=== PATIENT | male | born 1970 | race Caucasian/White ===

== ENCOUNTER 2019-06-16 18:03 | Inpatient (IN) | payer BC ==
[~2019-06-16] VITALS: Ht 198.1 cm; Wt 64.9 kg
[2019-06-16] MEDS ORDERED: Hydrocodone-Ap1 EA20 PO (19:34)
[2019-06-16] MEDS ORDERED: CYCL10 PO (19:35)
[2019-06-16] MEDS ORDERED: ZESTORETIC 20-251 EA PO (19:35)
[2019-06-16] MEDS ORDERED: TOPROL XL50 MG PO (19:35)
[2019-06-16] MEDS ORDERED: Mobic15 MG PO (19:36)
[2019-06-16] MEDS ORDERED: NIFE60ER PO (19:36)
[2019-06-16] MEDS ORDERED: CIPR500 PO (20:46)
[2019-06-17 00:15] LABS: Adenovirus Not Detected (NOT DETECT); Coronavirus 229E Not Detected (NOT DETECT); Coronavirus HKU1 Not Detected (NOT DETECT)
[2019-06-17 00:16] LABS: Bordetella pertussis Not Detected (NOT DETECT); Chlamydophila pneumoniae Not Detected (NOT DETECT); Coronavirus NL63 Not Detected (NOT DETECT); Coronavirus OC43 Not Detected (NOT DETECT); Human Metapneumovirus Not Detected (NOT DETECT); Human Rhinovirus/Enterovirus Detected (NOT DETECT); Influenza A Not Detected (NOT DETECT); Influenza A/2009-H1 Not Detected (NOT DETECT); Influenza A/H1 Not Detected (NOT DETECT); Influenza A/H3 Not Detected (NOT DETECT); Influenza B Not Detected (NOT DETECT); Mycoplasma pneumoniae Not Detected (NOT DETECT); Parainfluenza Virus 1 Not Detected (NOT DETECT); Parainfluenza Virus 2 Not Detected (NOT DETECT); Parainfluenza Virus 3 Not Detected (NOT DETECT); Parainfluenza Virus 4 Not Detected (NOT DETECT); Respiratory Syncytial Virus Not Detected (NOT DETECT)
[2019-06-17 05:10] LABS: Hematocrit 35.8 % (37.0-53.0); Hemoglobin 11.8 g/dL (13.5-17.5); Mean Corpuscular HGB 32.2 pg (26.0-34.0); Mean Corpuscular Volume 98 fL (80-100); Mean Platelet Volume 10.1 fL (9.1-12.4); Platelet Count 225 K/mm3 (150-400); RDW Coefficient Variation 13.3 % (11.7-14.2); RDW Standard Deviation 47.8 fL (35.1-46.3); Red Blood Cell Count 3.66 M/mm3 (4.30-5.90); White Blood Cell Count 17.88 K/mm3 (4.00-11.30)
[2019-06-17 05:33] LABS: Alanine Aminotransfer (ALT/SGP 14 U/L (12-78); Albumin, Blood 2.8 g/dL (3.4-5.0); Albumin/Globulin Ratio 0.8 (0.8-1.8); Alk Phos 62 U/L (50-136); Anion Gap 8 mmol/L (6-16); Aspartate Aminotrans (AST/SGOT 10 U/L (12-37); Bilirubin, Total 0.9 mg/dL (0.1-1.0); Blood Urea Nitrogen 19 mg/dL (8-24); Bun/Creatinine Ratio 19.7 (12.0-20.0); CO2, Blood 26 mmol/L (21-32); Calcium, Blood 8.4 mg/dL (8.5-10.1); Chloride, Blood 103 mmol/L (98-108); Creatinine, Blood 0.96 mg/dL (0.60-1.20); Globulin, Blood 3.6 g/dL (2.2-4.0); Glomerular Filtration Rate >60 (60-); Glucose, Blood 112 mg/dL (70-99); Potassium, Blood 3.4 mmol/L (3.5-5.5); Sodium, Blood 137 mmol/L (136-145); Total Protein, Blood 6.4 g/dL (6.4-8.2)
[2019-06-17 15:29] LABS: Free Thyroxine 1.2 ng/dL (0.70-1.60)
[2019-06-17 15:31] LABS: Thyroid Stimulating Hormone 0.19 uIU/mL (0.360-4.800); Triiodothyronine, Free 0.95 pg/mL (2.18-3.98)
[2019-06-18 04:08] LABS: BASOPHILS ABSOLUTE AUTO 0.02 K/mm3 (0.00-0.23); BASOPHILS PERCENT AUTO 0 % (0-2); EOSINOPHILS PERCENT AUTO 0 % (0-6); Hematocrit 36.7 % (37.0-53.0); Hemoglobin 11.9 g/dL (13.5-17.5); IMMATURE GRAN ABSOLUTE AUTO 0.08 K/mm3 (0.00-0.10); IMMATURE GRAN PERCENT AUTO 1 % (0-1); LYMPHOCYTES ABSOLUTE AUTO 0.61 K/mm3 (0.84-5.20); LYMPHOCYTES PERCENT AUTO 5 % (21-46); MONOCYTES ABSOLUTE AUTO 0.26 K/mm3 (0.16-1.47); MONOCYTES PERCENT AUTO 2 % (4-13); Mean Corpuscular HGB 31.7 pg (26.0-34.0); Mean Corpuscular HGB Conc 32.4 g/dL (31.5-36.5); Mean Corpuscular Volume 98 fL (80-100); Mean Platelet Volume 10.2 fL (9.1-12.4); NEUTROPHILS ABSOLUTE AUTO 11.32 K/mm3 (1.96-9.15); NEUTROPHILS PERCENT AUTO 92 % (41-73); Platelet Count 255 K/mm3 (150-400); RDW Coefficient Variation 12.9 % (11.7-14.2); RDW Standard Deviation 45.8 fL (35.1-46.3); Red Blood Cell Count 3.75 M/mm3 (4.30-5.90); White Blood Cell Count 12.29 K/mm3 (4.00-11.30)
[2019-06-18 04:26] LABS: Alanine Aminotransfer (ALT/SGP 19 U/L (12-78); Albumin, Blood 2.6 g/dL (3.4-5.0); Albumin/Globulin Ratio 0.7 (0.8-1.8); Alk Phos 58 U/L (50-136); Anion Gap 5 mmol/L (6-16); Aspartate Aminotrans (AST/SGOT 10 U/L (12-37); Bilirubin, Total 0.4 mg/dL (0.1-1.0); Blood Urea Nitrogen 20 mg/dL (8-24); Bun/Creatinine Ratio 24.1 (12.0-20.0); CO2, Blood 27 mmol/L (21-32); Calcium, Blood 8.5 mg/dL (8.5-10.1); Chloride, Blood 109 mmol/L (98-108); Creatinine, Blood 0.83 mg/dL (0.60-1.20); Globulin, Blood 3.8 g/dL (2.2-4.0); Glomerular Filtration Rate >60 (60-); Glucose, Blood 136 mg/dL (70-99); Potassium, Blood 3.8 mmol/L (3.5-5.5); Sodium, Blood 141 mmol/L (136-145); Total Protein, Blood 6.4 g/dL (6.4-8.2)
--- NOTE | 2019-06-18 05:24 | NUR ---
Shift Summary Patient appeared to sleep well overnight. He has not been able to produce a sputum sample yet. Crackles present to left lower lung on auscultation. Cough and deep breathing encouraged. Fluid encouraged.
--- NOTE | 2019-06-18 19:12 | NUR ---
SHIFT SUMMARY- PT IS A/O, COOPERATIVE, PLESANT. PT IS INDEPENDANT. CONTINUINING ON IV ANTIBIOTICS.
[2019-06-19 04:06] LABS: BASOPHILS ABSOLUTE AUTO 0.01 K/mm3 (0.00-0.23); BASOPHILS PERCENT AUTO 0 % (0-2); EOSINOPHILS PERCENT AUTO 0 % (0-6); Hematocrit 35.5 % (37.0-53.0); Hemoglobin 11.7 g/dL (13.5-17.5); IMMATURE GRAN ABSOLUTE AUTO 0.16 K/mm3 (0.00-0.10); IMMATURE GRAN PERCENT AUTO 1 % (0-1); LYMPHOCYTES ABSOLUTE AUTO 0.68 K/mm3 (0.84-5.20); LYMPHOCYTES PERCENT AUTO 5 % (21-46); MONOCYTES ABSOLUTE AUTO 0.33 K/mm3 (0.16-1.47); MONOCYTES PERCENT AUTO 3 % (4-13); Mean Corpuscular HGB 32.7 pg (26.0-34.0); Mean Corpuscular Volume 99 fL (80-100); Mean Platelet Volume 10.2 fL (9.1-12.4); NEUTROPHILS ABSOLUTE AUTO 12.07 K/mm3 (1.96-9.15); NEUTROPHILS PERCENT AUTO 91 % (41-73); Platelet Count 299 K/mm3 (150-400); RDW Coefficient Variation 12.9 % (11.7-14.2); RDW Standard Deviation 47.1 fL (35.1-46.3); Red Blood Cell Count 3.58 M/mm3 (4.30-5.90); White Blood Cell Count 13.25 K/mm3 (4.00-11.30)
--- NOTE | 2019-06-19 07:38 | NUR ---
Shift Summary Patient slept well overnight. Coughing and deep breathing encouraged.
[2019-06-19] MEDS ORDERED: VISBIOME 112.51 EACH PO (12:19)
[2019-06-19] MEDS ORDERED: AMOX875 (12:21)
[2019-06-19] MEDS ORDERED: AMOCLA875 PO (12:23)
[2019-06-19] MEDS ORDERED: [UNRECOGNIZED DRUG - OTHER] PO (12:29)
[2019-06-19] MEDS ORDERED: HYDRO PO (12:29)
--- NOTE | 2019-06-19 14:57 | NUR ---
PT DISCHARGED FROM UNIT. PT AMBULATED. DAUGHTER WILL MEET HIM DOWNSTAIRS TO PROVIDE A RIDE HOME. DISCHARGE INSTRUCTIONS REVIEWED. IV REMOVED. FAXED MEDICATIONS TO ANGÉL[facility]. DISCUSSED FOLLOW UP APPOINTMENT NEEDED.
== END 2019-06-19 13:55 | disposition home or self-care (01) | DRG 871 ==
LOC: ER 18:03 → MEDS 19:06
PROVIDERS: Internal Medicine; ADMIT Internal Medicine
DX: A41.9 Sepsis, unspecified organism (principal); J13 Pneumonia due to Streptococcus pneumoniae; E44.0 Moderate protein-calorie malnutrition; J44.0 Chronic obstructive pulmonary disease with (acute) lower respiratory infection; R64 Cachexia; Q87.40 Marfan syndrome, unspecified; Z68.1 Body mass index [BMI] 19.9 or less, adult; E05.90 Thyrotoxicosis, unspecified without thyrotoxic crisis or storm; F17.210 Nicotine dependence, cigarettes, uncomplicated; I10 Essential (primary) hypertension; D64.9 Anemia, unspecified
CPT/HCPCS: 0099U; 36415; 71045; 71046; 80053; 83605; 84146; 84439; 84443; 84481; 85025; 85027; 87040; 94640; 94760; 96374; 99285-25; J0456; J0696; J1650; J2930; J7030; J7050

== ENCOUNTER → 2019-06-16 | Outpatient (CLI) | payer BC ==
[~2019-06-16] MED LIST: AMOCLA875 PO; AMOX875; CIPR500 PO; CYCL10 PO; HYDRO PO; Hydrocodone-Ap1 EA20 PO; Mobic15 MG PO; NIFE60ER PO; TOPROL XL50 MG PO; VISBIOME 112.51 EACH PO; ZESTORETIC 20-251 EA PO; [UNRECOGNIZED DRUG - OTHER] PO
[2019-06-16 16:22] LABS: BASOPHILS ABSOLUTE AUTO 0.05 K/mm3 (0.00-0.23); BASOPHILS PERCENT AUTO 0 % (0-2); EOSINOPHILS ABSOLUTE AUTO 0.01 K/mm3 (0.00-0.68); EOSINOPHILS PERCENT AUTO 0 % (0-6); Hematocrit 40.6 % (37.0-53.0); Hemoglobin 13.5 g/dL (13.5-17.5); IMMATURE GRAN ABSOLUTE AUTO 0.29 K/mm3 (0.00-0.10); IMMATURE GRAN PERCENT AUTO 2 % (0-1); LYMPHOCYTES ABSOLUTE AUTO 0.85 K/mm3 (0.84-5.20); LYMPHOCYTES PERCENT AUTO 4 % (21-46); MONOCYTES PERCENT AUTO 4 % (4-13); Mean Corpuscular HGB 32.5 pg (26.0-34.0); Mean Corpuscular HGB Conc 33.3 g/dL (31.5-36.5); Mean Corpuscular Volume 98 fL (80-100); Mean Platelet Volume 9.9 fL (9.1-12.4); NEUTROPHILS ABSOLUTE AUTO 17.78 K/mm3 (1.96-9.15); NEUTROPHILS PERCENT AUTO 90 % (41-73); Platelet Count 289 K/mm3 (150-400); RDW Coefficient Variation 13.2 % (11.7-14.2); Red Blood Cell Count 4.15 M/mm3 (4.30-5.90); White Blood Cell Count 19.68 K/mm3 (4.00-11.30)
[2019-06-16 16:40] LABS: Alanine Aminotransfer (ALT/SGP 20 U/L (12-78); Albumin, Blood 3.5 g/dL (3.4-5.0); Albumin/Globulin Ratio 0.9 (0.8-1.8); Alk Phos 77 U/L (50-136); Anion Gap 6 mmol/L (6-16); Aspartate Aminotrans (AST/SGOT 9 U/L (12-37); Bilirubin, Total 1.4 mg/dL (0.1-1.0); Blood Urea Nitrogen 18 mg/dL (8-24); Bun/Creatinine Ratio 18.8 (12.0-20.0); CO2, Blood 25 mmol/L (21-32); Calcium, Blood 8.8 mg/dL (8.5-10.1); Chloride, Blood 104 mmol/L (98-108); Creatinine, Blood 0.96 mg/dL (0.60-1.20); Globulin, Blood 3.8 g/dL (2.2-4.0); Glomerular Filtration Rate >60 (60-); Glucose, Blood 109 mg/dL (70-99); Potassium, Blood 3.6 mmol/L (3.5-5.5); Sodium, Blood 135 mmol/L (136-145); Total Protein, Blood 7.3 g/dL (6.4-8.2)
== END ==
LOC: LAB SHORT 16:13 → LAB 16:13
PROVIDERS: Nurse Practitioner
DX: R53.83 Other fatigue (principal)
CPT/HCPCS: 80053; 85025

== ENCOUNTER → 2019-09-21 | Outpatient (CLI) | payer BC ==
[2019-09-21 12:10] LABS: Hematocrit 39.2 % (37.0-53.0); Hemoglobin 12.6 g/dL (13.5-17.5); Mean Corpuscular HGB 31.7 pg (26.0-34.0); Mean Corpuscular HGB Conc 32.1 g/dL (31.5-36.5); Mean Corpuscular Volume 99 fL (80-100); Mean Platelet Volume 10.4 fL (9.1-12.4); Platelet Count 336 K/mm3 (150-400); RDW Coefficient Variation 12.4 % (11.7-14.2); RDW Standard Deviation 45.3 fL (35.1-46.3); Red Blood Cell Count 3.98 M/mm3 (4.30-5.90); White Blood Cell Count 5.79 K/mm3 (4.00-11.30)
[2019-09-21 12:33] LABS: C-REACTIVE PROTEIN, EXT RANGE 0.931 mg/dL (0.000-0.300)
[2019-09-21 12:40] LABS: Alanine Aminotransfer (ALT/SGP 36 U/L (12-78); Albumin, Blood 3.4 g/dL (3.4-5.0); Albumin/Globulin Ratio 0.9 (0.8-1.8); Alk Phos 87 U/L (50-136); Anion Gap 4 mmol/L (6-16); Aspartate Aminotrans (AST/SGOT 17 U/L (12-37); Bilirubin, Total 0.4 mg/dL (0.1-1.0); Blood Urea Nitrogen 18 mg/dL (8-24); Bun/Creatinine Ratio 18.6 (12.0-20.0); CO2, Blood 26 mmol/L (21-32); Calcium, Blood 8.9 mg/dL (8.5-10.1); Chloride, Blood 106 mmol/L (98-108); Creatinine, Blood 0.97 mg/dL (0.60-1.20); Globulin, Blood 3.8 g/dL (2.2-4.0); Glomerular Filtration Rate >60 (60-); Glucose, Blood 87 mg/dL (70-99); Potassium, Blood 4.2 mmol/L (3.5-5.5); Sodium, Blood 136 mmol/L (136-145); Total Protein, Blood 7.2 g/dL (6.4-8.2)
== END | disposition home or self-care (01) ==
LOC: LAB 11:17 → LAB SHORT 11:17
PROVIDERS: Internal Medicine
DX: M65.849 Other synovitis and tenosynovitis, unspecified hand (principal)
CPT/HCPCS: 36415; 80053; 85027; 86140

== ENCOUNTER 2021-02-22 11:57 | Inpatient (IN) | payer BC ==
[~2021-02-22] VITALS: Ht 195.6 cm; Wt 70.4 kg
[2021-02-22 13:05] LABS: Hematocrit 32.4 % (37.0-53.0); Hemoglobin 10.9 g/dL (13.5-17.5); Mean Corpuscular HGB 30.1 pg (26.0-34.0); Mean Corpuscular HGB Conc 33.6 g/dL (31.5-36.5); Mean Corpuscular Volume 90 fL (80-100); Mean Platelet Volume 10.2 fL (9.1-12.4); Platelet Count 454 K/mm3 (150-400); RDW Standard Deviation 42.9 fL (35.1-46.3); Red Blood Cell Count 3.62 M/mm3 (4.30-5.90)
[2021-02-22 13:20] LABS: Alanine Aminotransfer (ALT/SGP 37 U/L (12-78); Albumin, Blood 1.6 g/dL (3.4-5.0); Albumin/Globulin Ratio 0.4 (0.8-1.8); Alk Phos 200 U/L (50-136); Anion Gap 4 mmol/L (6-16); Aspartate Aminotrans (AST/SGOT 31 U/L (12-37); Bilirubin, Total 0.4 mg/dL (0.1-1.0); Blood Urea Nitrogen 20 mg/dL (8-24); Bun/Creatinine Ratio 20.7 (12.0-20.0); CO2, Blood 28 mmol/L (21-32); Calcium, Blood 7.7 mg/dL (8.5-10.1); Chloride, Blood 104 mmol/L (98-108); Creatinine, Blood 0.97 mg/dL (0.60-1.20); Globulin, Blood 4.1 g/dL (2.2-4.0); Glomerular Filtration Rate >60 (60-); Glucose, Blood 84 mg/dL (70-99); Potassium, Blood 3.9 mmol/L (3.5-5.5); Sodium, Blood 136 mmol/L (136-145); Total Protein, Blood 5.7 g/dL (6.4-8.2)
[2021-02-22 13:56] LABS: BAND PERCENT MAN 9 % (0-8); BASOPHILS ABSOLUTE MAN 0.38 K/mm3 (0.00-0.23); BASOPHILS PERCENT MAN 1 % (0-2); EOSINOPHILS ABSOLUTE MAN 5.37 K/mm3 (0.00-0.68); EOSINOPHILS PERCENT MAN 14 % (0-6); LYMPHOCYTES ABSOLUTE MAN 1.53 K/mm3 (0.84-5.20); LYMPHOCYTES PERCENT MAN 4 % (21-46); METAMYELOCYTE ABSOLUTE MAN 0.38 K/mm3 (0.00-0.00); METAMYELOCYTE PERCENT MAN 1 % (0-0); MONOCYTES PERCENT MAN 0 % (4-13); MYELOCYTE ABSOLUTE MAN 0.38 K/mm3 (0.00-0.00); MYELOCYTE PERCENT MAN 1 % (0-0); NEUTROPHILS ABSOLUTE MAN 30.33 K/mm3 (1.96-9.15); SEG NEUTROPHILS PERCENT MAN 70 % (41-73); TOTAL CELLS COUNTED 100
[2021-02-22] MEDS ORDERED: MOXI400 (18:04)
[2021-02-22] MEDS ORDERED: Cefpodoxime Pr100 MG PO (18:04)
[2021-02-22] MEDS ORDERED: Norco 10-325 T1 EACH PO (18:06)
[2021-02-22] MEDS ORDERED: MOXI400 PO (19:56)
[2021-02-22] MEDS ORDERED: CEFP200 PO (19:56)
[2021-02-23 04:02] LABS: Hematocrit 30.4 % (37.0-53.0); Hemoglobin 10.4 g/dL (13.5-17.5); Mean Corpuscular HGB 30.1 pg (26.0-34.0); Mean Corpuscular HGB Conc 34.2 g/dL (31.5-36.5); Mean Corpuscular Volume 88 fL (80-100); Mean Platelet Volume 10.3 fL (9.1-12.4); Platelet Count 431 K/mm3 (150-400); RDW Coefficient Variation 13.1 % (11.7-14.2); RDW Standard Deviation 42.3 fL (35.1-46.3); Red Blood Cell Count 3.46 M/mm3 (4.30-5.90); White Blood Cell Count 36.19 K/mm3 (4.00-11.30)
[2021-02-23 04:16] LABS: Anion Gap 9 mmol/L (6-16); Blood Urea Nitrogen 15 mg/dL (8-24); Bun/Creatinine Ratio 19.1 (12.0-20.0); CO2, Blood 23 mmol/L (21-32); Calcium, Blood 6.5 mg/dL (8.5-10.1); Chloride, Blood 106 mmol/L (98-108); Creatinine, Blood 0.78 mg/dL (0.60-1.20); Glomerular Filtration Rate >60 (60-); Glucose, Blood 100 mg/dL (70-99); Potassium, Blood 3.5 mmol/L (3.5-5.5); Sodium, Blood 138 mmol/L (136-145)
--- NOTE | 2021-02-23 05:53 | NUR ---
SHIFT SUMMARY ASSUMED CARE OF PT AT 1900. PT IS A/OX4. HEART SOUNDS REGULAR, TELE SHOWS SINUS. LUNG SOUNDS ARE VERY DIMINSHED WITH CRACKLES IN THE R LUNG, PT WAS TITRATED FROM 3L TO 1L NC WITH SATURATIONS ABOVE 95% PT REPORTS FEELING LIKE HE CAN BREATH BETTER FROM WHEN HE ARRIVED. PT WAS A 1P SBA TO BATHROOM. CALL LIGHT IN REACH, BED IN LOWEST POSTION.
[2021-02-23 06:26] LABS: BAND PERCENT MAN 7 % (0-8); BASOPHILS PERCENT MAN 0 % (0-2); EOSINOPHILS ABSOLUTE MAN 8.68 K/mm3 (0.00-0.68); EOSINOPHILS PERCENT MAN 24 % (0-6); LYMPHOCYTES ABSOLUTE MAN 1.44 K/mm3 (0.84-5.20); LYMPHOCYTES PERCENT MAN 4 % (21-46); MONOCYTES ABSOLUTE MAN 0.36 K/mm3 (0.16-1.47); MONOCYTES PERCENT MAN 1 % (4-13); MYELOCYTE ABSOLUTE MAN 1.44 K/mm3 (0.00-0.00); MYELOCYTE PERCENT MAN 4 % (0-0); NEUTROPHILS ABSOLUTE MAN 24.24 K/mm3 (1.96-9.15); SEG NEUTROPHILS PERCENT MAN 60 % (41-73); TOTAL CELLS COUNTED 100
[2021-02-23 09:17] LABS: SARS-Cov-2 (COVID-19) PCR, MMC POSITIVE (NEGATIVE)
--- NOTE | 2021-02-23 10:45 | NUR ---
PT TRANSFERRED TO UNIT ON BED, COVID+ CONTACT CART OUTSIDE ROOM, PT A/O X 4, L, PLEASANT/COOPERAIVE, PROVIDED PO LIQUIDS AND WARM BLANKET. PT DENIES ANY PAIN, DENIES N/V, ROOM TEMPERATURE SET TO PT'S REQUEST
--- NOTE | 2021-02-23 10:55 | NUR ---
PT TRANSFERRED TO RM 211. REPORT GIVEN TO CASSIUS GLEASON. PT COVID TEST CAME BACK POSITIVE PT INITIATED ON ISOLATION PROTOCOL. PT REMAINED ON RA. REFUSED ANY PAIN MEDICINE. OTHER VITALS REMAINS STABLE. NO ISSUES REPORTED THIS MORNING, ABLE TO MAKE NEEDS KNOWN, PT TRANSFERRED VIA WHEELCHAIR ALL BELONGINGS SENT WITH THE PT, ACCOMPANIED BY PCT UPON TRANSFER
--- NOTE | 2021-02-23 14:00 | NUR ---
pt sitting up in bed, RA with SPO2 >90%. pt reports chest/R shoulder blade pain. analagesia provided per MAR. pt denies n/v, tolerating PO but states he is not really hungry. lungs: clear R lobes, diminished/crackles in the L lobes
--- NOTE | 2021-02-23 17:43 | NUR ---
shift summary: VS stable, no acute changes. pt remains SOB with exertions, SPB >90% on room air. pt rates pain in chest/r shoulder blade at 4/10 following reassessment of analgesia per SEP. pt tolerated PO intake, sitting up in side of bed, voiding. remains in COVID droplet precautions. pt remains a/o x 4, pleasant/cooperative.
[2021-02-24 04:35] LABS: Hematocrit 32.6 % (37.0-53.0); Hemoglobin 10.9 g/dL (13.5-17.5); Mean Corpuscular HGB 29.5 pg (26.0-34.0); Mean Corpuscular HGB Conc 33.4 g/dL (31.5-36.5); Mean Corpuscular Volume 88 fL (80-100); Mean Platelet Volume 9.9 fL (9.1-12.4); Platelet Count 415 K/mm3 (150-400); RDW Coefficient Variation 13.1 % (11.7-14.2); RDW Standard Deviation 42.5 fL (35.1-46.3); Red Blood Cell Count 3.69 M/mm3 (4.30-5.90); White Blood Cell Count 22.03 K/mm3 (4.00-11.30)
--- NOTE | 2021-02-24 05:14 | NUR ---
SHIFT SUMMARY: WAYNE IS A&OX4. VSS, NO ACUTE EVENTS OVERNIGHT, MAINTAINING SATS ORA. HE IS INDEPENDENT IN THE ROOM, TOLERATING PO INTAKE WELL BUT REPORTS A POOR APPETITE. IV TO R AC PATENT, NO DIFFICULTIES URINATING. HE IS LYING IN BED WITH THE CALL LIGHT IN REACH. WILL REPORT TO DAY SHIFT RN.
[2021-02-24 05:27] LABS: BAND PERCENT MAN 21 % (0-8); BASOPHILS PERCENT MAN 0 % (0-2); EOSINOPHILS ABSOLUTE MAN 0.66 K/mm3 (0.00-0.68); EOSINOPHILS PERCENT MAN 3 % (0-6); LYMPHOCYTES PERCENT MAN 5 % (21-46); METAMYELOCYTE ABSOLUTE MAN 0.22 K/mm3 (0.00-0.00); METAMYELOCYTE PERCENT MAN 1 % (0-0); MONOCYTES ABSOLUTE MAN 0.22 K/mm3 (0.16-1.47); MONOCYTES PERCENT MAN 1 % (4-13); MYELOCYTE ABSOLUTE MAN 0.44 K/mm3 (0.00-0.00); MYELOCYTE PERCENT MAN 2 % (0-0); NEUTROPHILS ABSOLUTE MAN 19.38 K/mm3 (1.96-9.15); SEG NEUTROPHILS PERCENT MAN 67 % (41-73); TOTAL CELLS COUNTED 100
--- NOTE | 2021-02-24 18:48 | NUR ---
SHIFT SUMMARY PT A&OX4, VSS, INDEPENDENT IN ROOM/TO BRP, VOIDING, JEREMY PO/LOW PO INTAKE, PAIN TREATED WITH 5 MG NORCO. PLAN FOR POSS INTERVENTIONAL BIOPSY TOMORROW, DR VALENZUELA HE WOULD PUT IN ORDER FOR NPO IF IT WAS GOING FORWARD ON THURSDAY. REPORT PROVIDED TO CARLIE BAUTISTA RN.
--- NOTE | 2021-02-24 19:58 | NUR ---
RECEIVED REPORT AND ASSUMED CARE OF PT. HE IS SITTING UP IN BED, A&OX4, MAINTAINING SATS ORA. HE REPORTS THAT HE WAS SENT TO THE ER BY DR. BISHOP FOR EVALUATION OF THE MASS ON HIS NECK WHICH SHE WANTED BIOPSIED. HE DENIES ANY NEW SYMPTOMS AND REPORTS HE HAS BEEN AT HOME, ALONE FOR THE MOST PART, FOR THE PAST MONTH. HE DENIES ANY NEEDS AT THIS TIME. TM.
[2021-02-25 05:04] LABS: Hematocrit 34.5 % (37.0-53.0); Hemoglobin 11.6 g/dL (13.5-17.5); Mean Corpuscular HGB 29.7 pg (26.0-34.0); Mean Corpuscular HGB Conc 33.6 g/dL (31.5-36.5); Mean Corpuscular Volume 89 fL (80-100); Mean Platelet Volume 10.1 fL (9.1-12.4); Platelet Count 508 K/mm3 (150-400); RDW Coefficient Variation 13.4 % (11.7-14.2); RDW Standard Deviation 43.4 fL (35.1-46.3); White Blood Cell Count 27.67 K/mm3 (4.00-11.30)
[2021-02-25 05:21] LABS: Anion Gap 8 mmol/L (6-16); Blood Urea Nitrogen 24 mg/dL (8-24); Bun/Creatinine Ratio 28.3 (12.0-20.0); CO2, Blood 24 mmol/L (21-32); Calcium, Blood 7.4 mg/dL (8.5-10.1); Chloride, Blood 106 mmol/L (98-108); Creatinine, Blood 0.85 mg/dL (0.60-1.20); Glomerular Filtration Rate >60 (60-); Glucose, Blood 103 mg/dL (70-99); Magnesium, Blood 1.9 mg/dL (1.6-2.4); Potassium, Blood 3.8 mmol/L (3.5-5.5); Sodium, Blood 138 mmol/L (136-145)
--- NOTE | 2021-02-25 05:57 | NUR ---
SHIFT SUMMARY: WAYNE IS A&OX4. VSS, NO ACUTE EVENTS OVERNIGHT. HE IS INDEPENDENT IN THE ROOM, TOLERATING PO INTAKE WELL, URINATING WITHOUT DIFFICULTY. HE DENIES ANY NEW OR WORSENING SYMPTOMS. IV TO R AC PATENT. HE IS LYING IN BED WITH THE CALL LIGHT IN REACH. WILL REPORT TO DAY SHIFT RN.
[2021-02-25 06:06] LABS: BAND PERCENT MAN 6 % (0-8); BASOPHILS PERCENT MAN 0 % (0-2); EOSINOPHILS ABSOLUTE MAN 0.55 K/mm3 (0.00-0.68); EOSINOPHILS PERCENT MAN 2 % (0-6); LYMPHOCYTES ABSOLUTE MAN 0.83 K/mm3 (0.84-5.20); LYMPHOCYTES PERCENT MAN 3 % (21-46); MONOCYTES ABSOLUTE MAN 0.55 K/mm3 (0.16-1.47); MONOCYTES PERCENT MAN 2 % (4-13); MYELOCYTE ABSOLUTE MAN 0.83 K/mm3 (0.00-0.00); MYELOCYTE PERCENT MAN 3 % (0-0); SEG NEUTROPHILS PERCENT MAN 84 % (41-73); TOTAL CELLS COUNTED 100
--- NOTE | 2021-02-25 14:14 | NUR ---
REPORTS PLANNING ON DISCHARGING PT HOME, REPORTS WILL PLACE ORDERS. DISCUSSED WITH REHAB THERAPY MANAGER TO ASSIST WITH DISCHARGE.
[2021-02-25] MEDS ORDERED: AMOX-CLAV ER 11 EAC1 PO (16:17)
[2021-02-25] MEDS ORDERED: DEXA4 PO (16:18)
--- NOTE | 2021-02-25 18:25 | NUR ---
RECENT DISCHARGE: PT REPORTS UNDERSTANDING OF DISCHARGE INSTRUCTIONS. PT REPORTS FEELING READY TO GO HOME. VSS. PT ON RA. PT ABLE TO MOVE ABOUT IN ROOM WITHOUT DIFFICULTY. PT IV OUT WNL, NO OTHER IV'S IN PLACE. PT OUT TO CAR WITH PRECAUTIONS IN PLACE, PT REPORTS HAVING N95 MASK AT HOME. REPORTS GIVING RIDE HOME, DISCUSSED PRECAUTIONS WITH HER WELL INCLUDING MASK.
== END 2021-02-25 18:16 | disposition home or self-care (01) | DRG 177 ==
LOC: ER 11:57 → ERHOLD 17:52 → PCU 19:32 → SURS 02-23 11:24
PROVIDERS: Family Medicine; Physician Assistant; Student in an Organized Health Care Education/Training Program; ADMIT Hospitalist
PROC: XW033E5 Introduction of Remdesivir Anti-infective into Peripheral Vein, Percutaneous Approach, New Technology Group 5 (ICD-10-PCS; principal; 2021-02-23)
PROC: 3E0D73Z Introduction of Anti-inflammatory into Mouth and Pharynx, Via Natural or Artificial Opening (ICD-10-PCS; 2021-02-23)
DX: J85.0 Gangrene and necrosis of lung (principal); U07.1 COVID-19; J12.82 Pneumonia due to coronavirus disease 2019; E87.2 Acidosis; Z68.1 Body mass index [BMI] 19.9 or less, adult; J44.0 Chronic obstructive pulmonary disease with (acute) lower respiratory infection; I10 Essential (primary) hypertension; E89.0 Postprocedural hypothyroidism; Z66 Do not resuscitate; F17.210 Nicotine dependence, cigarettes, uncomplicated; R91.8 Other nonspecific abnormal finding of lung field; G89.29 Other chronic pain; M54.5 Low back pain; I73.00 Raynaud's syndrome without gangrene; R63.4 Abnormal weight loss; Z79.899 Other long term (current) drug therapy; Z98.890 Other specified postprocedural states
CPT/HCPCS: 36415; 71046; 80048; 80053; 83605; 83735; 84100; 84145; 85025; 85610; 85730; 87040; 96374; 96375; 99285-25; A9270; J0692; J1650; J2185; J3370; J7030; J7050; J7060; U0004

== ENCOUNTER 2021-03-07 09:27 | Day surgery (SDC) | payer BC ==
[~2021-03-07 09:27] MED LIST changes: +AMOX-CLAV ER 11 EAC1 PO; +CEFP200 PO; +Cefpodoxime Pr100 MG PO; +DEXA4 PO; +MOXI400; +MOXI400 PO; +Norco 10-325 T1 EACH PO
== END 2021-03-07 23:29 | disposition home or self-care (01) ==
LOC: US 09:27
DX: C77.0 Secondary and unspecified malignant neoplasm of lymph nodes of head, face and neck (principal); R91.8 Other nonspecific abnormal finding of lung field; I10 Essential (primary) hypertension; Z87.891 Personal history of nicotine dependence
CPT/HCPCS: 38505; 76942; 88305; 88341; 88342